=== PATIENT | male | born 2000 | race Caucasian/White ===

== ENCOUNTER 2021-09-15 08:08 | Outpatient (CLI) | payer OTHER, SELFPAY ==
--- NOTE | 2021-09-15 08:15 | CRLHL7_ITS ---
For Patients: As a result of the Century Cures Act, medical imaging exams and procedure reports are released immediately into your electronic medical record. You may view this report before your referring provider. If you have questions, please contact your health care provider. Indication: Right hip pain. Procedure : Informed consent was obtained. The site was marked. Time-out was performed. The skin of the right hip was cleansed with ChloraPrep. A sterile drape was placed. 8 cc of 1 percent lidocaine was administered for superficial anesthesia. Subsequently a 22 gauge spinal needle was introduced into the right hip joint under intermittent fluoroscopic guidance. Injection of 2 cc nonionic Omnipaque 240 contrast confirmed intra-articular location. Subsequently 11 cc of dilute gadolinium were injected. The needle was removed and hemostasis achieved with direct pressure. A dressing was placed. The patient tolerated the procedure well without immediate complication and was immediately sent to MRI for imaging. Total fluoroscopy time 21 seconds. Impression: Successful fluoroscopically guided right hip arthrogram for MRI. Dictated by Brayden Ch MD @ 09/15/2021 9:27:46 AM (Electronically Signed)
--- NOTE | 2021-09-15 09:15 | MR_ITS ---
[facility] [address] [facility] [address] Phone:?[phone] Fax:?[phone] Referring Physician Information: . VLAD Lawson [address] [facility] [address] Phone:?[phone] Fax:?[phone] Patient:?Angel Roca D.O.B:?2000 Sex:?Male Phone:? [facility] MRN:?[id number] Exam Date:?09/15/2021 ? EXAM: MR ARTHROGRAM of the RIGHT HIP CLINICAL HISTORY: Right hip pain. Concern for torn right hip labrum and femoroacetabular impingement. COMPARISONS: None available. TECHNIQUE: MR sequences of the right hip: coronals: PD, T2, T1FS sagittals: PD, T2, T1FS axial obliques: PD axials: PD FS coronals of pelvis: T1, STIR Sedation: None Contrast: Intra-articular gadolinium based contrast. The injection procedure is reported separately. FINDINGS: Pelvis osseous structures: Sacrum: No fracture or destructive osseous lesion is seen of the imaged portions of the sacrum. Sacroiliac joints: No convincing evidence of sacroiliitis of the imaged portions of the sacroiliac joints. Pubic rami: Unremarkable. Symphysis pubis: There is no evidence of acute osteitis pubis. Labrum: There is full-thickness linear tear through the base of the right hip labrum from the 1:30 o'clock position anterosuperiorly through 3 o'clock position anteriorly best seen on axial oblique series 8 images 17 through 13. Hip joint: The presence of contrast reflects intra-articular injection. No discrete chondral loss is seen. No degenerative subchondral cystic change or degenerative subchondral edema-like signal is seen. Proximal femur: No fracture, osseous stress injury, avascular necrosis, or suspicious bone marrow signal abnormality is seen. There is right femoral cam morphology with a femoral alpha angle of approximately 67 degrees at the 12 o'clock position superiorly measured on coronal series 7 image 17. Acetabulum: No subchondral cysts, periacetabular ossicles or marrow edema. Coverage: Right lateral center edge (CE) angle measures approximately 27? correcting for coronal pelvic tilt, midline coronal series 7 image 17. Ligamentum teres: Unremarkable. Myotendinous structures: Gluteus abductors: There is a small approximately 7 x 7 mm partial tear of the anterior portion of the right gluteus medius tendon insertion best seen on axial series 9 image 18 and coronal series 3 image 24. There is mild right greater trochanteric bursitis. Rectus abdominis-adductor longus aponeurosis, adductors, and rectus abdominis: Unremarkable. Hamstrings: Unremarkable. Flexors: The iliopsoas and rectus femoris tendons are intact. Quadratus femoris muscle: Unremarkable. Gluteal aponeurotic fascia and IT band: Unremarkable. Pelvic soft tissues: Unremarkable. IMPRESSION: 1. Full-thickness linear tear through the base of the right hip labrum from the 1:30 o'clock position anterosuperiorly through 3 o'clock position anteriorly. No evidence of right hip chondral loss. No degenerative subchondral cystic change/degenerative subchondral edema-like signal. 2. Right femoral cam morphology with a femoral alpha angle of approximately 67 degrees at the 12 o'clock position superiorly. 3. Small approximately 7 x 7 mm partial tear of the anterior portion of the right gluteus medius tendon insertion and mild right greater trochanteric bursitis, of uncertain clinical significance. 4. No fracture or osseous stress injury of the right hip. RCB Electronically signed on 09/16/2021 8:32:00 AM by Ronnie Lopez M.D.
== END 2021-09-15 08:09 | disposition home or self-care (01) ==
DX: M25.551 Pain in right hip (principal); S73.101A Unspecified sprain of right hip, initial encounter; M70.61 Trochanteric bursitis, right hip
CPT/HCPCS: 27093; 73525; 73722; 77002; A9575; Q9966

== ENCOUNTER 2021-10-14 17:18 | Emergency (ER) | payer OTHER, SELFPAY ==
[2021-10-14 17:22] VITALS: BP 150/85; PULSE 73; RESP 18; TEMP 36.2; O2SAT 63; BMI 30.2
--- NOTE | 2021-10-14 17:44 | CRLHL7_ITS ---
For Patients: As a result of the Cures Act, medical imaging exams and procedure reports are released immediately into your electronic medical record. You may view this report before your referring provider. If you have questions, please contact your health care provider. INDICATION: Pain after injury. COMPARISON: None available. FINDINGS: The left thumb is examined with PA, lateral, and oblique views. There is dorsal dislocation of the 1st MCP joint without evidence of avulsion fracture of the base of the 1st distal phalanx or fracture of the head of the 1st metacarpal. The interphalangeal joint is normal in appearance. The soft tissues are normal in appearance without sign of radio-opaque foreign body. No degenerative disease is seen. IMPRESSION: Dorsal dislocation of the 1st MCP joint without evidence of fracture. Dictated by Kevin Brice MD @ 10/14/2021 6:15:57 PM (Electronically Signed)
--- NOTE | 2021-10-14 17:50 | ED_ITS ---
HPI - General Adult General Time Seen by Provider: 17:50 Date Seen: 10/14/21 Chief complaint: Extremity Pain/Injury, Upper Stated complaint: thumb injury Time Seen by Provider: 10/14/21 17:29 Source: patient Mode of arrival: ambulatory Limitations: no limitations History of Present Illness HPI narrative: Angel is a 20-year-old male no past medical history playing football at [email or web address] today when he fell forward with his left hand jamming his left thumb on the ground. He sustained an injury with some deformity to the left thumb, there is pain and swelling, he has limited range of motion, denies any numbness tingling to the area. No other sustained injury. Related Data Home Medications Medication Instructions Recorded Confirmed No Known Home Medications 10/14/21 10/14/21 Allergies Allergy/AdvReac Type Severity Reaction Status Date / Time No Known Drug Allergies Allergy Verified 10/14/21 17:26 Review of Systems Status of ROS: Reports: 10 or more systems reviewed and unremarkable except as noted in History and below PFSH PFS Social History Smoking Status: Never smoker Do you use any of these nicotine containing products: None Second hand tobacco smoke exposure: No How often do you have a drink containing alcohol: 2-4 times a month How many standard drinks containing alcohol do you have on a typical day: 1 or 2 How often do you have six or more drinks on one occasion: Less than monthly AUDIT-C Alcohol total score: 3 Non-prescribed substance use: denies use service: No Exam Const: Vital Signs, click to edit/add: Vital Signs - 24 hr 10/14/21 17:22 10/14/21 19:30 Temperature 97.2 F L Pulse Rate [Right Pulse Oximeter] 73 54 L Respiratory Rate 18 18 Blood Pressure [Ri ght Upper Arm] 150/85 H 133/89 Pulse Oximetry 63 L 98 Oxygen Delivery Me thod Room Air Room Air Common normals: no apparent distress and oriented x3 HENMT: Common normals: normocephalic, head/scalp atraumatic and TM's normal bilaterally Head and scalp: normocephalic and atraumatic Tympanic membrane: TM's normal bilaterally Eye: Common normals: PERRL Pupil: PERRL Neck & C-Spine: Common normals: full ROM, supple and no JVD Lymph: Lymphatic: no lymphadenopathy noted Resp: Common normals: clear to auscultation bilaterally Auscultation: clear to auscultation bilaterally Cardio: Common normals: no JVD GI: Common normals: Normal to inspection, nondistended, normoactive bowel soun ds present : Common normals: no CVA tenderness Bladder/kidney exam: no CVA tenderness Back & Pelvis: Common normals: no CVA tenderness, thoracic and lumbar spine normal to inspection and no thoracic nor lumbar tenderness Extremity: Other: Left thumb: Significant swelling to the proximal MCP, the proximal phalanx is dorsally dislocated from the MCP, minimal range of motion on extension and fle xion. CMS intact. Neuro: Common normals: oriented x3 and moves all extremities Course Course Hospital Course: 5:45 PM: AIDET performed. Workup will include IV peripheral, suspect dislocation, will obtain imaging XR thumb 3 views. Patient to receive 0.5 mg IV Dilaudid, will also do a digital block. Imaging Dorsal dislocation of the 1st MCP joint without evidence of fracture. Reevaluation(s) Reevaluation #1: Reduction performed, please see procedure note, post reduction films did show successful reduction with no fracture, Postreduction films demonstrate normal alignment of the 1st MCP. No acute fractures. No other dislocations identified. Spoke with Blanca from Orthopedics, recommended thumb spica, he will follow up with them in clinic over the next wee k. Reasons to return were given. All questions answered. Time: 18:48 Vital Signs Vital signs: Initial Vital Signs Temperature 97.2 F L 10/14/21 17:22 Temperature Source Temporal Artery Scan 10/14/21 17:22 Pulse Rate 73 10/14/21 17:22 Respiratory Rate 18 10/14/21 17:22 Blood Pressure 150/85 H 10/14/21 17:22 Blood Pressure Mean 106 10/14/21 17:22 Blood Pressure Position Sitting 10/14/21 17:22 Pulse Oximetry 63 L 10/14/21 17:22 Oxygen Delivery Method 10/14/21 17:22 Vital Signs Temperature 97.2 F L 10/14/21 17:22 Pulse Rate 73 10/14/21 17:22 Respiratory Rate 18 10/14/21 17:22 Blood Pressure 150/85 H 09/01/22 17:22 Pulse Oximetry 63 L 10/14/21 17:22 Oxygen Delivery Method 10/14/21 17:22 Temperature 97.2 F L 10/14/21 17:22 Pulse Rate 54 L 10/14/21 19:30 Respiratory Rate 18 10/14/21 19:30 Blood Pressure 133/89 10/14/21 19:30 Pulse Oximetry 98 10/14/21 19:30 Oxygen Delivery Method 10/14/21 19:30 Discharge Plan Discharge Clinical Impression: Closed dislocation of left thumb Patient Disposition: Home, Self-Care Condition: Improved Instructions: Finger Dislocation (ED) Additional Instructions: To follow-up with orthopedic clinic here in [place] as scheduled over the next week, to continue to wear the thumb spica during activity, Motrin or Tylenol as needed for pain. Return if worsening symptoms. Activity Level: Activity as Tolerated Prescriptions: No Action No Known Home Medications Stand Alone Forms: [facility] Info Instructions Procedures Orthopedic Joint Reduction Joint #1: Written consent by: patient Time Out Performed: Yes Side: left Joint Reduction Location: finger (Left thumb) Manipulation used?: Yes Analgesia: nerve block Local Anesthesia: lidocaine 1% Amount of anesthesic used (mL): 8 Shoulder Technique Used (if applicable): traction/counter-traction Technique used: traction/counter-traction Post-reduction neuro vascular exam: intact Post Reduction X-Ray Obtained: Yes Post Reduction X-Ray Results: reduced Splint Applied: Yes Patient Tolerated Procedure: well
[2021-10-14] MEDS: HYDROmorphone 0.5 mg/0.5 ml inj IVP (18:25)
[2021-10-14 18:33] VITALS: BP 161/88; PULSE 52; O2SAT 97
--- NOTE | 2021-10-14 18:38 | CRLHL7_ITS ---
For Patients: As a result of the Cures Act, medical imaging exams and procedure reports are released immediately into your electronic medical record. You may view this report before your referring provider. If you have questions, please contact your health care provider. Indication: Post reduction. Technique: Three views of the left thumb. Comparison: None. Findings/impression: Postreduction films demonstrate normal alignment of the 1st MCP. No acute fractures. No other dislocations identified. Dictated by Tod Rivera MD @ 10/14/2021 7:49:40 PM (Electronically Signed)
[2021-10-14 19:05] VITALS: PULSE 26; RESP 16; O2SAT 97
[2021-10-14 19:30] VITALS: BP 133/89; PULSE 54; RESP 18; O2SAT 98
--- OUTSIDE RECORDS SUMMARY | 2021-10-14 20:12 | XMS_ITS | Encounter Summary ---
:2000 Author Organization [facility] Address [address] [place] [address] Care Team Providers Name Role Phone No Ref-Primary, Physician Primary Care Provider [phone] Estefany Sullivan MANAGER SOLAR Unavailable Sarah Rodney RN Unavailable Reason for Visit Reason Onset Date Comments Pre Visit Planning - Done 06/15/2020 Consult for te sticular pain. Records available in [employer]. Encounter Details Date Type Department Care Team Description 06/15/2020 PRE VISIT [facility] Geeta Villalta Pre Visit Planning - Urology Clinic MURRAY Plasencia Done (Consult for [address] testicular pain. [address] [place] [address] Records available in 4th Floor [address] [place] [address].) [place], [place] [phone] (Work) [phone] Social History Tobacco Use Types Packs/Day Years Used Date Never Assessed Sex Assigned at Date Recorded Not on file documented as of this encounter Miscellaneous Notes Telephone Encounter - Carolina Pina CMA - 06/15/2020 12:14 PM CDT Consult for testicular pain. Records available in [employer]. documented in this encounter Plan of Treatment Not on filedocumented as of this encounter Visit Diagnoses Not on filedocumented in this encounter Care Teams Boring Machine Operator Helper Relationship Specialty Start Date End Date No Ref-Primary, Physician PCP - General 05/15/20 Estefany Sullivan, JASMINA Nurse Practitioner Urology 05/19/[address] [place] [address] Sarah Rodney, RN Specialty Project Management Instructor Urology 05/19/20 documented as of this encounter
--- OUTSIDE RECORDS SUMMARY | 2021-10-14 20:12 | XMS_ITS | Encounter Summary ---
:2000 Author Organization [facility] Address [address] [place] [address] Care Team Providers Name Role Phone No Ref-Primary, Physician Primary Care Provider [phone] Estefany Sullivan BUSINESS SUPPORT SPECIALIST Unavailable Sarah Rodney RN Unavailable Reason for Visit Reason Onset Date Comments Pre Visit Planning - Done 05/28/2020 Encounter Details Date Type Department Care Team Description 05/28/2020 PRE VISIT [facility] Estefany Sullivan Pre Visi t Planning - Urology Clinic JASMINA Brumfield Done [address] [place], [place] [id number] [place] [address] (Wo rk) [id number] [phone] Social History Tobacco Use Types Packs/Day Years Used Date Never Assessed Sex Assigned at Date Recorded Not on file documented as of this encounter Miscellaneous Notes Telephone Encounter - Roverto Orona EMT - 05/28/2020 7:14 AM CDT Chief Complaint : Consult Hx/Sx: Testicular lesion Records/Orders: Recs obtained Pt Contacted: N/a At Rooming: MOUNA Mosley documented in this encounter Plan of Treatment Not on filedocumented as of this encounter Visit Diagnoses Not on filedocumented in this encounter Care Teams Chief Service Dispatcher Relationship Specialty Start Date End Date No Ref-Primary, Physician PCP - General 05/15/20 Estefany Sullivan, JASMINA Nurse Practitioner Urology 05/19/[address] [place] [address] Sarah Rodney, RN Specialty Maintenance Supervisor Electrical Urology 05/19/20 documented as of this encounter
--- OUTSIDE RECORDS SUMMARY | 2021-10-14 20:12 | XMS_ITS | Clinical Summary ---
:2000 Author Organization [employer] [facility] [place] [address] Care Team Providers Name Role Phone Pcp, No Primary Care Provider Unavailable Allergies No known active allergies Medications Medication Sig Dispensed Refills Start Date End Date Status dextroamphetamine-amphet Take 20 mg by 0 03/02/2021 Active amine (ADDERALL XR) 20 mouth once mg Extended-Release daily. capsule erythromycin ophthalmic Apply 1 Strip to 3.5 g 0 2 Active ointment left eye 6 times 0.5%Indications: daily. Hordeolum externum of left lower eyelid Active Problems Problem Noted Date Leukonychia 05/24/2017 Nutritional deficiency 05/24/2017 Hx of seasonal allergies 05/24/2017 Anxiousness 05/24/2017 Allergy to [place] house dust mite 05/24/2017 Immunizations Name Administration Dates Next Due DTP 06/10/2005, 03/27/2002, 07/18/2000, 02/24/2000, 01/08/2000 HIB PRP-T (ActHIB,Hiberix) 05/14/2001, 07/18/2000, 1, 01/08/2000 Hepatitis B, Unspecified 05/14/2001, 02/24/2000, 01/08/2000 Inactivated Polio Vaccine 06/10/2005, 03/27/2002, 02/24/2000 , 01/08/2000 Influenza, IIV3 (Age >=3 years) 12/10/2020 MMR 06/10/2005, 03/27/2002 Varicella Vaccine 05/18/2007, 10/18/2000 Social History Tobacco Use Types Packs/Day Years Used Date Never Smoker Smokeless Tobacco: Never Used Tobacco Cessation: Counseling Given: Yes Sex Assigned at Date Recorded Not on file Obstetrics History Last Filed Vital Signs Vital Sign Reading Time Taken Comments Blood Pressure 134/80 04/05/2021 11:23 AM DATA MINER Pulse 50 04/05/2021 11:23 AM DATA MINER Temperature 36.9 ??C (98.4 ??F) 12/17/2020 9:59 AM CDT Respiratory Rate - - Oxygen Saturation 99% 04/05/2021 11:23 AM DATA MINER Inhaled Oxygen Concentration - - Weight 105.1 kg (231 lb 9.6 oz) 04/05/2021 11:23 AM DATA MINER Height - - Body Mass Index - - Plan of Treatment Health Maintenance Due Date Last Done Comments HPV series for age 9-26 (1 - 10/15/2010 Male 2-dose series) Tdap 10/15/2010 Depression screening for age 0910/16/2011 12+ BMI (ht and wt on same day) 10/15/2017 for age 18+ Hepatitis C screening for age 0910/15/2017 18-79 Tetanus booster 2019 COVID-19 vaccine series (3 - 11/30/2020 06/30/2020, Booster for Moderna series) 06/02/2020 Influenza for age 9-49 10/14/2021 12/10/2020 Meningococcal series for age Aged Out No longer eligible based 01-03 on patient's age to complete this to pic Results Not on filefrom Last 3 Months Insurance Payer Benefit Plan / Subscriber ID Effective Dates Phone Addre ss Type Group [facility] [id number] 2019-Present [address] [address] [place] [address] Care Teams Insurance Investigator Relationship Specialty Start Date End Date Pcp, No PCP - General 12/07/18 .
--- OUTSIDE RECORDS SUMMARY | 2021-10-14 20:12 | XMS_ITS | Encounter Summary ---
:2000 Author Organization [facility] Address [address] [place] [address] Care Team Providers Name Role Phone No Ref-Primary, Physician Primary Care Provider [phone] Estefany Sullivan [facility] Unavailable Sarah Rodney RN Unavailable Reason for Visit Reason Onset Date Comments *-*INCOMING RECORDS*-* 05/19/2020 Encounter Details Date Type Department Care Team Description 05/19/2020 PRE VISIT [facility] Estefany Sullivan *-*INCOM ING RECORDS*-* Urology Clinic JASMINA Brumfield [id number] [place] [address] (Wo rk) [address] [phone] Social History Tobacco Use Types Packs/Day Years Used Date Never Assessed Sex Assigned at Date Recorded Not on file documented as of this encounter Miscellaneous Notes Telephone Encounter - Paulina Randhawa - 06/09/2020 8:40 AM CDT Action Action Taken Imaging received from [facility] 06/09 taken to [facility] prince process. dipika Telephone Encounter - Paulina Randhawa - 05/19/2020 11:32 AM CDT Action Action Taken Sent request to [facility] in [place] Fax number: [phone] Pt stated he has a testicular us also requested.. cdk MEDICAL RECORDS REQUEST [facility] [address] [place] [address] PHONE: [phone] FUTURE VISIT INFORMATION Angel Roca, : 2000 scheduled for future visit at [facility] APPOINTMENT INFORMATION: ?? Date: 05/29/2020 ?? Provider: Laurie HARRIS ?? Reason for Visit/Diagnosis: Testicular pain REFERRAL INFORMATION: ?? Referring provider: Self ?? Specialty: N/A ?? Referring providers clinic: N/A ?? Clinic contact number: N/A RECORDS REQUESTED FOR VISIT NOTES STATUS/DETAILS OFFICE NOTE from referring provider no OFFICE NOTE from other specialist yes DISCHARGE SUMMARY from hospital no DISCHARGE REPORT from the ER no OPERATIVE REPORT no MEDICATION LIST yes PRE-VISIT CHECKLIST Record collection complete Yes - [facility] recs scanned In [employer] CSS faxed to [facility] to obtain IMGS (US TESTICLE) Appointment appropriately scheduled (right time/right provider) Yes MyChart activation If no, please explain: in process Questionnaire complete If no, please explain: in process Completed by: Shaneka Carter documented in this encounter Plan of Treatment Not on filedocumented as of this encounter Visit Diagnoses Not on filedocumented in this encounter Care Teams Deep Well Contractor Relationship Specialty Start Date End Date No Ref-Primary, Physician PCP - General 05/15/20 Estefany Sullivan CNP Nurse Practitioner Urology 05/19/[address] [place] [id number] Sarah Rodney RN Specialty Jury Consultant Urology 05/19/20 documented as of this encounter
--- OUTSIDE RECORDS SUMMARY | 2021-10-14 20:12 | XMS_ITS | Clinical Summary ---
:2000 Author Organization [facility] [facility] Address [address] [place] [address] Care Team Providers Name Role Phone No Ref-Primary, Physician Primary Care Provider Estefany Sullivan SHOER Unavailable Sarah Rodney RN Unavailable Geeta Villalta PA-C Unavailable Allergies No known active allergies Medications No known medications Immunizations Name Administration Dates Next Due HepB, Unspecified 05/14/2001, 02/24/2000, 01/08/2000 Hib (PRP-T) 05/14/2001, 07/18/2000, 02/24/2000, 12/15 Historical DTP/aP 06/10/2005, 03/27/2002, 07/18/2000, 02/24/2000, 01/08/2000 MMR 06/10/2005, 03/27/2002 Poliovirus, inactivated (IPV) 06/10/2005, 03/27/2002, 2000, 01/08/2000 Varicella 05/18/2007, 10/18/2000 Social History Tobacco Use Types Packs/Day Years Used Date Never Smoker Smokeless Tobacco: Never Used Sex Assigned at Date Recorded Not on file Plan of Treatment Health Maintenance Due Date Last Done Comments ADVANCE CARE PLANNING 2000 ANNUAL REVIEW OF HM ORDERS 2000 PREVENTIVE CARE VISIT 2000 DTAP/TDAP/TD IMMUNIZATION 10/15/2010 06/10/2005, 03/27/2002 , (6 - Tdap) 07/18/2000, Additional history exists HPV IMMUNIZATION (1 - Male 10/15/2010 2-dose series) HIV SCREENING 10/15/2014 HEPATITIS C SCREENING 10/15/2017 COVID-19 Vaccine (2 - 06/30/2020 06/02/2020 Moderna series) PHQ-2 (once per calendar 02/13/2021 06/18/2020 year) INFLUENZA VACCINE (#1) 2021 HEPATITIS B IMMUNIZATION Completed 05/14/2001, 02/24/2000, 01/08/2000 IPV IMMUNIZATION Completed 06/10/2005, 03/27/2002, 02/24/2000, Additional history exists MENINGITIS IMMUNIZATION Aged Out No longe r eligible based on patient 's age to complete this topic Pneumococcal Vaccine: Aged Out No longer eligible Pediatrics (0 to 5 Years) based on patient's age and At-Risk Patients (6 to to co mplete this topic 64 Years) Insurance Payer Benefit Plan / Subscriber ID Effective Phone Address [employer] [facility] [id number] 2020-Bro [phone] [address] [address] Care Teams Last Turner Relationship Specialty Start Date End Date No Ref-Primary, Physician PCP - General 05/15/20 Estefany Sullivan, JASMINA Nurse Practitioner Urology 05/19/[address] [place] [address] [phone] Sarah Rodney, RN Specialty Manager Restaurant Urology 05/19/20 Geeta Villalta PA-C Assigned Surgical Provider 06/28/[address] [place] [address]
--- OUTSIDE RECORDS SUMMARY | 2021-10-14 20:12 | XMS_ITS | Encounter Summary ---
:2000 Author Care Team Providers Name Role Phone Neo Hameed MD Primary Care Provider [phone] Beatrice Esparza MD Medical Records Coder [phone] Reason for Visit Follow up Assessment and Plan 1. Femoral acetabular impingement 20-year-old male with bilateral femoral acetabular impingement. On his left side, he has demonstrated improvement following c ortisone injection. He does still have some discomfort. We discussed that given his MRI findings with a large cam deformity and anterior superior labral tear, it is lik ana that he will need surgical intervention in the future. He would like to play his senior season of football this upcoming fall. Therefore, he will do physical the rapy over the summer and potentially get 1 more cortisone injection in the fall. We discussed potentially doing hip arthroscopy in January. Would like him to follow up with me in the fall to check in on how he is doing. He demonstrated understanding and agreement. ? physical therapist referral - Diagnos is: Bilateral hip ANGÉLICA HIP PHYSICAL THERAPY PRESCRIPTION _X_ Evaluate and treat _X_ Pelvic stabilization exercises _X_ Hip and core strengthening including hip flexors and abductors _X_ Range of motion _X_ WBAT _X_ Gait training _X_ Pain relief modali ties prn Treatment: ____2-3____ times per week _X_ Home Program Duration: ___4-6__ ___ weeks Please send progress notes. Discussion Note: None recorded.Patient educational handouts: No information available. Plan of Care Reminders Provider Appointments None recorded. ? ? Lab None recorded. ? ? Referral Physical Therapist Referral 07/22/2021 Светлана Ordoñez PT Procedures None recorded. ? ? Surgeries None recorded. ? ? Imaging None recorded. ? ? Medications Name Start Date ? ? dextroamphetamine-amphetamine ER 25 mg 24hr capsule,ex tend release ? Take 1 capsule every day by oral route for 30 days. doxycycline hyclate 100 mg capsule ? erythromycin 5 mg/gram (0.5 %) eye ointment ? imiquimod 5 % topical cream packet ? APPLY 1 APPLICATION EVERY OTHER DAY BY TOPICAL ROUTE AT BEDTIME FOR 30 DAYS. Kenalog 40 mg/mL suspension for injection ? Take 2 mL by injection route. lidocaine (PF) 10 mg/mL (1 %) injection solution ? Take 5 mL by injection route. ProAir HFA 90 mcg/actuation aerosol inhaler ? Inhale 2 puffs every 4-6 hours by inhalation route as needed for 30 days. Medications Administered None recorded. Vitals Height 6 ft 1 in Results Lab Results None recorded. Allergies Code Code System Name Reaction Severity Onset No Known Allergies ? ? 2009 NKDA ? ? ? Problems Name Status Onset Date Source ? Varicocele Active 09/11/2020 ? 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 History Procedures Date Name Performed by ? 02/13/2005 Tonsillectomy Information not avai lable 02/13/2003 Myringotomy Tube Placement Information n ot available Notes: repair torn labrum of left dreau lder 07/03/2014 Vaccine List Vaccine Type COVID-19, mRNA, LNP-S, PF, 100 mcg/0.5 m L dose (Moderna) 06/02/2020 06/30/2020 02/02/2021?0.25 mL DTaP 01/08/2000 02/24/2000 07/18/2000 03/27/2002 06/10/2005 Hep B, unspecified formulation 01/08/2000 02/24/2000 05/14/2001 Hib, unspecified formulation 01/08/2000 02/24/2000 07/18/2000 05/14/2001 IPV 01/08/2000 02/24/2000 03/27/2002 06/10/2005 MMR 03/27/2002 06/10/2005 Tdap 09/23/2014?0.5 mL TST-PPD intradermal 10/18/2000 06/10/2005 05/18/2007 varicella 10/18/2000 05/18/2007 Notes: declines 2019 flu vaccine EL Social History Tobacco Smoking Status Never Smoker Notes: history of vaping, stopped vapi ng in June after he had int ense pain after vaping. What type of diet are you REGULAR following? What is your parents' marital status? Are you blind or do you have N difficulty seeing? Do you have smoke and carbon Y monoxide detectors in your home? RISK LEVEL - Segmentation Level 3 - Complex Chronic Dx/specialty treatable Do you have any siblings? 1 Pool exposure Y What was the date of your most 06/24/2021 recent tobacco screening? Do you use sunscreen routinely? Y What is your home situation? Mother Do you or have you ever used Never used electronic e-cigarettes or vape? cigarettes What is your exercise level? Heavy Animal exposure? N Year in School 8 Do you wear a helmet when Y biking? Do you or have you ever used Never used smokeless tobacco smokeless tobacco? Are you deaf or do you have N serious difficulty hearing? Do you use your seat belt or Y car seat routinely? What types of sporting Basketball,Football,Tennis,La activities do you participate Crosse,Golf in? Are you passively exposed to N smoke? What is the name of your [employer]? Family History Relation Problem Onset Age of Age Notes Mother No current problems or (No Information) N/A ( No Notes) disability Father No current problems or (No Information) N/A ( No Notes) disability Functional Status No Impairment. Past Encounters 07/22/2021 Femoral Acetabular Impingement Brayden Chavira MD: [address] [place] [address], [address] [facility], [place] [address], Ph. 06/24/2021 Femoral Acetabular Impingement Marcelo Matos MD: [address] [place] [address], [address] [place] [address], [place] [address], Ph. History of Present Illness Note: 20-year-old male presents for follow-up of left hip pain. About 1 month ago, he underwent a cortisone injection with my partner Dr. Matos within the intra-articular space. He states that this injection did help him significantly. His pain is minimal at this point. He does get occasional tweaks in thehip but it is much less than previously. He was having difficulty doing formal physical therapy the past few months, but he would like to take it back up during the summer. He is also complaining of some right hip pain and states that it is starting to feel similar to the leftReview of Systems: ROS as noted in the HPI Review of Systems None recorded. Physical Exam ? Notes: Left hip- there is no erythe ma or effusion present. The patient is mildly tender to palpation along th e hip flexors, the proximal adductor tendons. Patient demonstrates range o f motion with 100? of flexion, internal rotation to 30?, external rotation 55 ?. There is a mildly positive FADIR, negative RONALD sign. Negative Stinchf ield. Patient has 5/5 strength in hip flexion. Adduction, and abduction. Th ere is no apprehension sign present<div>
</div><div>R ight hip- there is no erythema or effusion present. The patient is nont raffy palpation, including both over the hip flexors and lateral hip. Pat ient demonstrates range of motion with 100? of flexion, internal rotation t o 30?, external rotation 55?. There is a negative FADIR/RONALD sign. Negative S tinchfield. Patient has 5/5 strength in hip flexion, adduction, and abdu ction. There is no apprehension sign present. Intact sensation within the superficial peroneal nerve, deep peroneal nerve, and posterior tibial nerve.< /div>
--- OUTSIDE RECORDS SUMMARY | 2021-10-14 20:12 | XMS_ITS | Encounter Summary ---
:2000 Author Organization [facility] Address [address] [place] [address] Care Team Providers Name Role Phone No Ref-Primary, Physician Primary Care Provider [phone] Estefany Sullivan CNP Unavailable Sarah Rodney RN Unavailable Encounter Details Date Type Department Care Team Description 05/29/2020 Virtual Visit [facility] Estefany Sullivan No-show for Urology Clinic JASMINA Brumfield appointment (Primary [address] Dx) [address] [place] [address] [address]th [address] [address] [place], [place] [phone] [address] (Work) [phone] Social History Tobacco Use Types Packs/Day Years Used Date Never Assessed Sex Assigned at Date Recorded Not on file documented as of this encounter Progress Notes Estefany Sullivan CNP - 05/29/2020 2:30 PM CDT Multiple attempts made to contact patient without response. Will alize as no-show for today's appointment. Estefany Sullivan CNP Department of Urology documented in this encounter Plan of Treatment Not on filedocumented as of this encounter Visit Diagnoses Diagnosis No-show for appointment - Primary documented in this encounter Care Teams Taco Maker Relationship Specialty Start Date End Date No Ref-Primary, Physician PCP - General 05/15/20 Estefany [facility] CNP Nurse Practitioner Urology 05/19/20 [address] [place] [address] Sarah Rodney RN Specialty Shade Classifier Urology 05/19/20 documented as of this encounter
--- OUTSIDE RECORDS SUMMARY | 2021-10-14 20:12 | XMS_ITS | Encounter Summary ---
:2000 Author Organization [facility] Address [address] [place] [address] Care Team Providers Name Role Phone No Ref-Primary, Physician Primary Care Provider [phone] Estefany [facility] CNP Unavailable Sarah Rodney RN Unavailable Encounter Details Date Type Department Care Team Description 06/18/2020 Travel Social History Tobacco Use Types Packs/Day Years Used Date Never Smoker Smokeless Tobacco: Never Used Sex Assigned at Date Recorded Not on file COVID-19 Exposure Response Date Recorded In the last month, have you been in contact with No / Unsure 06/18/2020 11:06 AM CDT someone who was confirmed or suspected to have Coronavirus / COVID-19? documented as of this encounter Plan of Treatment Not on filedocumented as of this encounter Visit Diagnoses Not on filedocumented in this encounter Care Teams Avionics Engineer Relationship Specialty Start Date End Date No Ref-Primary, Physician PCP - General 05/15/20 Estefany [facility] CNP Nurse Practitioner Urology 05/19/20 [address] [place] [address] Sarah Rodney, RN Specialty Commercial Maintenance Technician Urology 05/19/20 documented as of this encounter
--- OUTSIDE RECORDS SUMMARY | 2021-10-14 20:12 | XMS_ITS | Encounter Summary ---
:1999 Author Care Team Providers Name Role Phone Neo Hameed MD Primary Care Provider [phone] Beatrice Esparza MD Transferrer [phone] Reason for Visit None recorded. Assessment and Plan 1. Femoral acetabular impingement 20-year-old male with bilateral femoral acetabular impingement. He is concerned about the progression of his pain over t he past several weeks. He is now questioning whether not he can make it through the season for football. On his right side, would like to get an MRI arthrogram. We do not have any advanced imaging of this joint to assess whether he has labral te aring or chondral damage. On his left side, we agreed to proceed with additional int ra-articular cortisone injection. If this does not provide him sufficient relief, then I recommend he not play in his senior season and move forward with surgery. I do not want him to risk injury secondary to pain and discomfort. He will set up the injection in [place] where he is in college. We will do a virtual check-in s ever weeks after the shot to assess his response and see how football is going Discussion Note: None recorded.Patient educational handouts: No information available. Plan of Care Reminders Provider Appointments None recorded. ? ? Lab None recorded. ? ? Referral None recorded. ? ? Procedures None recorded. ? ? Surgeries None [...] 30 days. Medications Administered None recorded. Vitals None recorded. Results Lab Results None recorded. Allergies Code [...] Myringotomy Tube Placement Information n ot available 08/26/2021 XR, Arthrogram, Hip [facility] [address] [place], [place] [id number] (Work Place) 08/26/2021 US, Hip [facility] [address] [place], [place] [address]2732 (Work Place) 08/26/2021 MR, Arthrogram, Hip Smg Imaging [address] [place], [place] [address]1782 (Work Place) Notes: repair torn labrum of left shou lder 07/03/2014 Vaccine List Vaccine Type COVID-19, [...] smoke? What is the name of your [employer] school? Family History Relation Problem Onset Age of Age Notes Mother No current problems or (No Information) N/A ( No Notes) disability Father No current problems or (No Information) N/A ( No Notes) disability Functional Status No Impairment. Past Encounters 08/26/2021 Femoral Acetabular Impingement Brayden Chavira MD: [address] [facility], [address], [place] [address], Ph. 07/27/2021 Attention Deficit Hyperactivity Disorder , Predominantly Inattentive Type; Long- term Drug Therapy Neo Hameed MD: [address] [place] [address], Ph. History of Present Illness Note: 20-year-old male presents for follow-up of bilateral hip pain. He is here during a virtual visit. He states that the pain has worsened significantly over the past several weeks. In addition to being deep inside his groin he also feels that he is getting some pain in his genitals and the perineal area. He has been doing physical therapy and exercising without much benefit.Review of Systems: ROS as noted in the HPI Review of Systems None recorded. Physical Exam ? Notes: Examination limited secondar y to virtual nature. He self palpates the anterior groin and notes pain in this location. There is also pain in the trochanteric bursa bilaterally
--- OUTSIDE RECORDS SUMMARY | 2021-10-14 20:12 | XMS_ITS | Encounter Summary ---
:1999 Author Organization [facility] Address [address] [place] [address] Care Team Providers Name Role Phone No Ref-Primary, Physician Primary Care Provider [phone] Estefany Sullivan HEAT TREATING FURNACE TENDER Unavailable Sarah Rodney RN Unavailable Encounter Details Date Type Department Care Team Description 06/18/[address] [facility] Dysuria Laboratory [address] [place] [address] Social History Tobacco Use Types Packs/Day Years [...] Not on filedocumented as of this encounter Procedures Procedure Name Priority Date/Time Associated Comments Diagnosis NEISSERIA GONORRHOEAE Routine 06/18/2020 11:09 Dysuria Re sults for this PCR AM CDT procedure are i n the results section. CHLAMYDIA TRACHOMATIS Routine 06/18/2020 11:09 Dysuria Re sults for this PCR AM CDT procedure are i n the results section. documented in this encounter Results Neisseria gonorrhoeae PCR (06/18/2020 11:09 AM CDT) Analysis Performed At Patho logist Time Signature Specimen Urine 06/18/2020 [place] Descrip 11:43 AM CDT [facility] N Gonorrhea Negative NEG^Negati 06/19/2020 INFECTIOUS PCR ve 1:22 PM CDT [facility] Comment: Negative for N. gonorrhoeae rRNA by saenz scription mediated amplification. A negative result by mobile application engineer media nayeli amplification does not preclude the presence of N. gonorrhoeae infection because results are dependent on proper and adequate collection, absence of inhibitors, and sufficient rRNA to be detected. Specimen Anatomical Collection Method Collection Time Receive d Time (Source) Location / / Volume Laterality Urine 06/18/2020 11:09 06/18/2020 AM CDT 11:43 AM CDT Geeta Erinn Villalta PA-C LAB - MICRO GENERAL ORDERABL ES Performing Organization Address City/[facility] Phon e Number INFECTIOUS DISEASES [address] [place] [address] DI[facility]ST[facility]ORY, [facility] [address] [place], [place] [address] [address] Chlamydia trachomatis PCR (06/18/2020 11:09 AM CDT) [facility] Method Time Signature Specimen Urine 06/18/2020 [place] Description 11:43 AM CDT [facility] Chlamydia Negative NEG^Negat 06/19/2020 INFECTIOUS Trachomatis PCR juana 1:22 PM CDT [facility] Comment: Negative for C. trachomatis rRNA by saenz scription mediated amplification. A negative result by mobile application engineer media nayeli amplification does not preclude the presence of C. trachomatis infection because results are dependent on proper and adequate collection, absence of inhibitors, and sufficient rRNA to be detected. Specimen Anatomical Collection Method Collection Time Receive d Time (Source) Location / / Volume Laterality Urine 06/18/2020 11:09 06/18/2020 AM CDT 11:43 AM CDT Geeta Villalta PA-C LAB - MICRO GENERAL ORDERABL ES Performing Organization Address [facility] Phon e Number INFECTIOUS DISEASES [address] [place] [address] DIAGNOSTIC LAB[facility]ATORY, [facility] [address] [place], [place] [address] [address] documented in this encounter Visit Diagnoses Diagnosis Dysuria documented in this encounter Care Teams Bank Courier Relationship Specialty Start Date End Date No Ref-Primary, Physician PCP - General 05/15/20 Estefany [facility] CNP Nurse Practitioner Urology 05/19/20 [address] [place] [address] Sarah Rodney, STEVEN Specialty Software Quality Tester Urology 05/19/20 documented as of this encounter
--- OUTSIDE RECORDS SUMMARY | 2021-10-14 20:12 | XMS_ITS | Encounter Summary ---
:1999 Author Care Team Providers Name Role Phone Neo Hameed MD Primary Care Provider [phone] Beatrice Esparza MD Resident Care Aid [phone] Reason for Visit Medication Check Assessment and Plan Assessment Note 20-year-old male with attenti on deficit hyperactivity disorder, otherwise healthy. Discontinue dextroamphetamine-a mphetamine extended release 20 mg, 1 capsule once daily. Start dextroamphetamine amph etamine extended release 25 mg, 1 capsule once daily. I discussed attention defici t disorder at length. I reviewed the benefits and risks of stimulant medication. I exp lained the potential side effects that may be associated with stimulant medication. Th ronak include, but are not limited to; tachycardia, palpitations, decreased thee etite, sleep disturbance, headaches, and abdominal pain. I reassured the patient that any side effects eventually will improve if the medication is not discontinued. A n attempt will be made to keep the patient on the lowest effective dose of stimulant m edication. However, the medication may have to be titrated upward depending on the r esponse. Feedback is essential. Discussion of attention deficit hyperactivity disorder and stimulant medications took approximately 25 min. 1. Attention deficit hyperactivity diso rder, predominantly inattentive type ? dextroamphetamine-amphetamine ER 25 m g 24hr capsule,extend release 2. Long-term drug therapy Discussion Note This patient was seen and examined by jc sanchez and a provider wearing full PPE. The caregiver was wearing a mask throughout the visit and the patient was wearing a mask for arrival and departure in an age appr opriate fashion. Patient educational handouts: No information available. Plan of [...] days. Medications Administered None recorded. Vitals Height Weight BMI Blood Pressure 6 ft 1 in 231 lbs 30.5 kg/m2 130/60 mm[Hg] Results Lab Results None recorded. Allergies Code [...] available Notes: repair torn labrum of left shou [...] smoke? What is the name of your [employer]? Family History Relation Problem Onset Age of Age Notes Mother No current problems or (No Information) N/A ( No Notes) disability Father No current problems or (No Information) N/A ( No Notes) disability Functional Status No Impairment. Past Encounters 07/27/2021 Attention Deficit Hyperactivity Disorder , Predominantly Inattentive Type; Long- term Drug Therapy Neo Hameed MD: [address] [facility], [place] [address], Ph. 07/22/2021 Femoral Acetabular Impingement Brayden Chavira MD: [address] [facility], [address] [place] [address], Ph. History of Present Illness Note: Angel is a 20-year-old male who has a history of attention deficit hyperactivity disorder.He returns to a consult for a medication check. He presently takes dextroamphetamine-amphetamine extended release 20 mg capsules, 1 capsule once daily. He finds that the 20 mg is not sufficient to keepin focused and organized. He denies any significant side effects. He does not have jitteriness, tachycardia, heart palpitations, headache, or abdominal pain. Review of Systems ? Notes: There are no vision, hearing , dental, cardiac, respiratory, gastrointestinal, renal, hematological, genito urinary, musculoskeletal problems. Physical Exam ? Notes: General: No acute distress. Head: Normocephalic, atraumatic. Eyes: PERRL, EOMI. Clear scleras. Ears: T ympanic membranes are clear. Nose: Negative discharge. Throat: Clear. Ne ck: FROM. Negative lymphadenopathy. Chest: Negative retractions. Lungs: CTA, negative rhonchi, rales, and wheezes. Heart: Negative murmur, RSR, S1, S2 . Abdomen: Normal bowel sounds. Negative HSM. Not distended. Negative masses. Extremities: FROM. Negative cyanosis, clubbing, edema. Skin: Negative rash. Neurologic: PERRLA. EOMI. Negative photophobia. Negative papilledema. Optic discs clearly demarcated. CN II through XII are intact. Deep tendon reflexes are within normal limits. Normal tandem walking. Normal toe walking. Normal h eel walking. Able to hop equally on both feet. Negative Rhomberg test.
--- OUTSIDE RECORDS SUMMARY | 2021-10-14 20:12 | XMS_ITS | Encounter Summary ---
:2000 Author Organization [facility] Address [address] [place] [address] Care Team Providers Name Role Phone No Ref-Primary, Physician Primary Care Provider [phone] Estefany Sullivan HEEL BOOM OPERATOR Unavailable Sarah Rodney RN Unavailable Reason for Visit Reason Comments Consult testicular pain Encounter Details Date Type Department Care Team Description 06/18/[address] [facility] Geeta Villalta Left madonna ticular pain (Primary Dx); [facility] Plasencia Dysuria [address] 4[address] [address] [place], [place] [phone] (Work) [phone] Social History Tobacco Use Types Packs/Day Years Used Date Never Smoker Smokeless Tobacco: Never Used Sex Assigned at Date Recorded Not on file COVID-19 Exposure Response Date Recorded In the last month, have you been in contact with No / Unsure 06/18/2020 11:06 AM CDT someone who was confirmed or suspected to have Coronavirus / COVID-19? documented as of this encounter Patient Instructions Patient InstructionsGeeta Villalta PA-C - 06/18/2020 10:30 AM CDT Images from the original note were not included. UROLOGY CLINIC VISIT PATIENT INSTRUCTIONS Labs today for gonorrhea and chlamydia. Will contact you with results. Start taking Doxycycline 100 mg twice daily for 10 days to treat possible epididymitis. Doxycycline can make you more sensitive to the sun, so use caution and sunscreen when outdoors. Call [phone] if your symptoms do not improve with treatment. We would then consider scheduling an in person visit for exam. Patient Education Epididymitis?? Inflammation of the epididymis can cause pain and swelling in your scrotum. The epididymis is a small tube next to the testicle that stores sperm. Epididymitis is often caused by an infection. In sexually active men, it is often caused by a sexually transmitted infection (STI) such as chlamydia or gonorrhea. In boys and in men over 40, it can be from bacteria from other parts of the urinary tract (not an STI infection). Symptoms may begin with pain in the lower belly (abdomen) or low back. The pain then spreads down into the scrotum. Often only one side is affected. The testicle and scrotum swell and become very painful and red. You may have??fever and a burning when passing urine. Sometimes you may have??a dischargefrom the penis. Treatment is with antibiotics, and anti-inflammatory and pain medicines. The condition should get better over the first few days of treatment. But it will take several weeks for all the swelling and mild pain to go away. If your healthcare provider thinks that an STI is the??cause, your sexual partners may need to be treated. Home care Here are some tips to help you care for yourself at home: ?? Support the scrotum. When lying down, place a rolled towel under the scrotum. When walking, use an athletic supporter or 2 pairs of jockey-style underwear. ?? To ease pain, put ice packs on the inflamed area. To make an??ice pack, put ice cubes in a plastic bag that seals at the top. Wrap the bag in a clean, thin??towel. Never put an ice pack directly on the skin. ?? Take pain medicine as directed. You may use??sdkm-jua-xozbzzd medicines??to control pain, unless another medicine was given. If you have long-term (chronic) liver or kidney disease, talk with your healthcare provider before taking these medicines. Also talk with your provider if you've ever had a stomach ulcer or GI (gastrointestinal) bleeding. ?? Get some rest. Rest in bed for the first few days until the fever, pain, and swelling get better.It may take several weeks for all of the swelling to go away. ?? Prevent constipation. Constipation??can make you strain. This makes the pain worse. Prevent constipation??by eating natural laxatives. These include prunes, fresh fruits, and whole-grain cereals.??If needed, use a mild bqlz-xfy-mmexsdw laxative??for constipation. Mineral oil can be used to keep thestools soft. ?? Wait to have sex. Don't have sex until you have finished all treatment and all symptoms have cleared. ?? Take all medicine as directed. Don't miss any doses. And don't stop taking your medicine early, even if you feel better. Follow-up care Follow up with your healthcare provider, or as advised, to be sure you are responding correctly to treatment. If a culture was taken, you may call for the result as directed. A culture test can ensure that you are on the correct antibiotic.?? When to seek medical advice Call your healthcare provider right away??if any of these occur: ?? Fever of 100.4??F (38??C) or higher, or as directed by your provider ?? More pain or swelling of the testicle after starting treatment ?? Pressure or pain in your bladder that gets worse ?? Unable to pass urine for 8 hours [employer] last reviewed this educational content on 10/14/2018 ?? [id number] [employer]. All rights reserved. This information is not intended as a substitute for professional medical care. Always follow your healthcare professional's instructions. If you have any issues, questions or concerns in the meantime, do not hesitate to contact us at [phone] or via [employer]. It was a pleasure meeting with you today. Thank you for allowing me and my team the privilege of caring for you today. YOU are the reason we are here, and I truly hope we provided you with the excellent service you deserve. Please let us know if there is anything else we can do for you so that we can be sure you are leaving completely satisfied with your care experience. documented in this encounter Progress Notes Geeta Villalta PA-C - 06/18/2020 10:30 AM CDT Angel is a 19 year old who is being evaluated via a billable video visit. How would you like to obtain your AVS? MyChart If the video visit is dropped, the invitation should be resent by: Text to cell phone: [phone] Will anyone else be joining your video visit? No NOTE: Patient's permanent address is [place], though he is currently physically in the [facility] for college. Name: Angel Roca Date of : 2000 Chief Complaint: Testicular pain Assessment and Plan: 19 year old male with left-sided testicular pain x 1 year, now with acutely worsening pain in addition to new symptoms including lower abdominal/pelvic pain (left > right), dysuria, and urinary frequency. Scrotal ultrasound in 09/2019 demonstrated normal testes bilaterally, small epididymal cysts bilaterally, and a left-sided varicocele. Unlikely that the cysts or varicocele alone are the etiology for his worsening symptoms. Clinically, this sounds suspicious for epididymitis, though we are limited by the virtual visit in completing a comprehensive physical exam to make the diagnosis. Discussed empiric treatment with antibiotics, and close follow up in the urology clinic if not improving. He is amenable. Reports low concern for STI, though is amenable to urine testing for gonorrhea and chlamydia. Will do these labs today. Will then treat with Doxycycline 100 mg BID x 10 days. Also encouraged NSAIDS and other supportive measures. Plan: -Lab appointment for gonorrhea and chlamydia urine tests today. -Start Doxycycline 100 mg BID x 10 days. Side effects discussed. -NSAIDS PRN and other supportive measures. -Call if no improvement as would then need further evaluation in person for exam, possible repeat scrotal ultrasound vs CT (need to consider urinary stone, though this seems relatively low on the list of differentials). Of note, he will be returning to his home in [place] on 07/19, returning to [place] for college in the Fall. If symptoms persist, may need to seek care locally. Geeta Villalta PA-C June 18, 2020 History of Present Illness: Angel Roca is a 19 year old male seen today via virtual visit for evaluation of testicular pain. The pain is left-sided and started over a year ago. He describes a constant dull pain with intermittent sharp jabs. He saw someone for this a year ago and was told that he has a swollen sperm duct. Saw them again last fall and was diagnosed and treated for epididymitis with Bactrim with minimal improvement. Scrotal ultrasound at that time revealed small bilateral epididymal head cysts and a left-sidedvaricocele, but was otherwise normal. Since then, his pain has continually worsened. Over the last few weeks, he has also developed lower abdominal/pelvic pain (left > right), pain with urination, urinary frequency, and worsening pain in the left scrotum after ejaculation. The left testicle area feels tender to the touch and is slightly swollen per his report. No identified aggravating of ameliorating factors. He denies gross hematuria, urethral discharge, or changes to his urine stream. He is sexually active and uses condoms. Low concern for STI but he is amenable to testing. Past Medical History: History reviewed. No pertinent past medical history. Past Surgical History: History reviewed. No pertinent surgical history. Social History: Social History Tobacco Use ??? Smoking status: Never Smoker ??? Smokeless tobacco: Never Used Substance Use Topics ??? Alcohol use: Not on file Family History: History reviewed. No pertinent family history. Allergies: No Known Allergies Medications: No current outpatient medications on file. No current facility-administered medications for this visit. Review of Systems: ROS: 14 point ROS neg other than the symptoms noted above in the HPI and PMH. Physical Exam: GENERAL: Healthy, alert and no distress EYES: Eyes grossly normal to inspection. No discharge or erythema, or obvious scleral/conjunctival abnormalities. RESP: No audible wheeze, cough, or visible cyanosis. No visible retractions or increased work of breathing. SKIN: Visible skin clear. No significant rash, abnormal pigmentation or lesions. NEURO: Cranial nerves grossly intact. Mentation and speech appropriate for age. PSYCH: Mentation appears normal, affect normal/bright, judgement and insight intact, normal speech and appearance well-groomed. Labs: None Imagin10/04/2019 Scrotal ultrasound (per radiology report; images not available for review) Normal testes bilaterally without masses. 5 mm cyst in right epididymis 4 mm cyst in left epididymis Left varicocele Outside records: I spent 5 minutes reviewing outside records from [facility]. Video Start Time: 10:36 AM Video-Visit Details Type of service: Video Visit Video End Time:10:50 AM + an additional 5 minutes on the phone when the video connection fell through Originating Location (pt. Location): Home Distant Location (provider location): [facility] [place] Platform used for Video Visit: HarjinderWell documented in this encounter Nursing Notes Preethi Vizcarra LPN - 06/18/2020 10:30 AM CDT Chief Complaint Patient presents with ??? Consult testicular pain No Known Allergies No current outpatient medications on file. Social History Tobacco Use ??? Smoking status: Never Smoker ??? Smokeless tobacco: Never Used Substance Use Topics ??? Alcohol use: None ??? Drug use: None Preethi Vizcarra LPN 06/18/2020 10:31 AM documented in this encounter Plan of Treatment Not on filedocumented as of this encounter Results Chlamydia trachomatis PCR (06/18/2020 11:09 AM CDT) [facility] Method Time Signature Specimen Urine 06/18/2020 [place] Description 11:43 AM CDT [facility] Chlamydia Negative NEG^Negat 06/19/2020 INFECTIOUS Trachomatis PCR juana 1:22 PM CDT [facility] Comment: Negative for C. trachomatis rRNA by saenz scription mediated amplification. A negative result by lay brother media nayeli amplification does not preclude the [...] MICRO GENERAL ORDERABL ES Performing Organization Address City/State/ZIP Code Phon e Number INFECTIOUS DISEASES [address] [place] [address] DI[facility], [facility] [address] [place], [place] [address] [address] Neisseria gonorrhoeae PCR (06/18/2020 11:09 AM CDT) Analysis Performed At Patho logist Time Signature Specimen Urine 06/18/2020 [facility] 11:43 AM CDT [facility] N Gonorrhea Negative NEG^Negati 06/19/2020 INFECTIOUS PCR ve 1:22 PM CDT [facility] Comment: Negative for N. gonorrhoeae rRNA by saenz scription mediated amplification. A negative result by lay brother media nayeli amplification does not preclude the [...] MICRO GENERAL ORDERABL ES Performing Organization Address City/State/ZIP Code Phon e Number INFECTIOUS DISEASES [address] [place] [address] DI[facility]NOSTIC LABORATORY, [facility] [address] [place], [place] [address] [address] documented in this encounter Visit Diagnoses Diagnosis Left testicular pain - Primary Dysuria documented in this encounter Care Teams Accountancy Professor Relationship Specialty Start Date End Date No Ref-Primary, Physician PCP - General 05/15/20 Estefany Sullivan CNP Nurse Practitioner Urology 05/19/[address] [place] [id number] Sarah Rodney, STEVEN Specialty Public Transit Specialist Urology 05/19/20 documented as of this encounter
--- OUTSIDE RECORDS SUMMARY | 2021-10-14 20:12 | XMS_ITS ---
:2000 Author Care Team Providers Name Role Phone NEO ROBERTS MD Primary Care Provider [phone] JIMMIE ZAPIEN MD Coordinator Cardiopulmonary Services [phone] Allergies Code Code System Name Reaction Severity Status Onset No Known Allergies ? ? Active 1 NKDA ? Medications Name Status Start Date Stop Date ? ? amoxicillin 875 mg-potassium clavulanate 125 mg tablet Unknown ? Not available Take 1 tablet twice a day by oral route for 10 days. cefdinir 300 mg capsule Completed ? 08/26/19 17 Colace 100 mg capsule Unknown ? Not availa ble Take 1 tab PO Q8 Hrs while taking narcotic medication dextroamphetamine-amphetamine ER 15 mg 24hr capsule,extend relea se Completed ? 10/09/2020 TAKE 1 CAPSULE EVERY DAY BY ORAL ROUTE FOR 30 DAYS. dextroamphetamine-amphetamine ER 20 mg 24hr Completed ? 07/27/2021 capsule,extend release dextroamphetamine-amphetamine ER 25 mg 24hr capsule,extend relea se Active ? Not available Take 1 capsule every day by oral route for 30 days. doxycycline hyclate 100 mg capsule Active ? Not available erythromycin 5 mg/gram (0.5 %) eye ointment Active ? Not available Flucelvax Quad 60 mcg (15 mcg x 4)/0.5 mL in tramuscular susp Completed ? 08/10/2020 PHARMACY ADMINISTERED imiquimod 5 % topical cream packet Active ? Not available APPLY 1 APPLICATION EVERY OTHER DAY BY TOPICAL ROUTE AT BEDTIME FOR 30 DAYS. Kenalog 40 mg/mL suspension for injection Active ? Not available Take 2 mL by injection route. lidocaine (PF) 10 mg/mL (1 %) injection solution Active ? Not available Take 5 mL by injection route. meloxicam 15 mg tablet Completed ? 2 TAKE 1 TABLET BY MOUTH EVERY DAY IN THE MORNING naproxen 500 mg tablet Completed ? 1 TAKE 1 TABLET BY MOUTH TWICE A DAY FOR 10 DAYS Nasacort 55 mcg nasal spray aerosol Unknown ? Not available Take by nasal route. ondansetron HCl 4 mg tablet Unknown ? Not available oxycodone-acetaminophen 5 mg-325 mg tablet Unknown ? Not available ProAir HFA 90 mcg/actuation aerosol inhaler Active ? Not available Inhale 2 puffs every 4-6 hours by inhalation route as needed fo r 30 days. QNASL 80 mcg/actuation nasal aerosol spray Completed ? 08/17/2017 sulfamethoxazole 800 mg-trimethoprim 160 mg tablet Completed ? 08/10/2020 TAKE 1 TABLET BY MOUTH EVERY 12 HOURS FOR 10 DAYS Vitamin C Unknown ? Not available Problems Name Status Onset Date Source ? Varicocele Active 09/11/2020 ? Attention Deficit Hyperactivity Disorder, Active 2020 ? Predominantly Inattentive Type Allergic Rhinitis Active ? History Shoulder Pain Unknown ? Encounter Injury of Glenoid Labrum of Shoulder Joint Unknown ? Encounter Procedures Date Name Performed by ? 02/13/2005 Tonsillectomy Information not avai lable 02/13/2003 Myringotomy Tube Placement Information n ot available 08/01/2014 X-ray, Shoulder [facility] [place], [place] [address]692 (Work Place) 11/21/2016 XR, Knee, 4 or More View [facility] [place], [place] [address]3082 (Work Place) 11/21/2016 MRI, Lower Extremity Joint(s), W/o Contr ast [facility] [place], [place] [address]452 (Work Place) 05/01/2018 XR, Clavicle [facility] [place], [place] [address]242 (Work Place) 05/01/2018 MRI, Clavicle, W/wo Contrast [facility] [place], [place] [address]602 (Work Place) 05/07/2018 XR, Guidance [facility] [place], [place] [address]682 (Work Place) 08/10/2018 Electrocardiogram [facility] [place], [place] [address]172 (Work Place) 08/10/2018 XR, Chest [facility] [place] [address] (Work Place) 08/13/2019 XR, Knee [facility] [place] [address] (Work Place) 10/04/2019 US, Testicle [facility] [address] [place] [address] (Work Place) 09/07/2020 US, Groin [facility] [place] [address] (Work Place) 02/01/2021 XR, Hip + Pelvis, Bilateral [facility] [place] [address] (Work Place) 02/04/2021 XR, Hip, Unilateral, 1 View [facility] [place] [address] (Work Place) 02/04/2021 XR, Arthrogram, Hip [facility] [place] [address] (Work Place) 02/04/2021 US, Hip [facility] [place] [address] (Work Place) 02/04/2021 MR, Arthrogram, Hip [facility] [place] [address] (Work Place) 08/26/2021 XR, Arthrogram, Hip [facility] [place] [address] (Work Place) 08/26/2021 US, Hip [facility] [place] [address] (Work Place) 08/26/2021 MR, Arthrogram, Hip [facility] [place] [address] (Work Place) Notes: repair torn labrum of left shou lder 07/03/2014 Results Lab Results Date Name Specimen Result Interpretation Description Value Range Status Address ? 09/11/2020 Visual ? R Eye 20/25 ? ? [facility]peds: Acuity* Corrected [address] [place], [address] [place] ? ? ? L Eye -1 ? ? [facility]: Corrected [address] [place], [address] [place] 01/31/2019 CBC W/ Auto BLOO Norm Wbc 6.2 3.8- [facility] Lab: [address], al thousand 10.8 l [facility] WHOL /uL thou E sand /uL ? ? BLOO Norm Rbc [address] [facility] Lab: [address], al million/ -5.8 l [facility] WHOL uL 0 E mill ion/ uL ? ? BLOO Norm Hemoglobin [address] [facility] L ab: [address], al g/dL -17. l [place] WHOL 1 E g/dL ? ? BLOO Norm Hematocrit 43.6 % 38.5 [facility] L ab: [address], al -50. l [place] WHOL 0 % E ? ? BLOO Norm Mcv 92.[address] [facility] Lab: [address], al -100 l [place] WHOL .0 E fL ? ? BLOO Norm Mch 31.[address] [facility] Lab: [address], al -33. l [place] WHOL 0 pg E ? ? BLOO Norm Mchc 34.[address] [facility] Lab: [address], al g/dL -36. l [place] WHOL 0 E g/dL ? ? BLOO Norm Rdw 11.7 % 11.0 [facility] Lab: [address], al -15. l [place] WHOL 0 % E ? ? BLOO Norm Platelet 190 140- [facility] Lab : [address], al Count thousand 400 l [facility] WHOL /uL thou E sand /uL ? ? BLOO Norm Mpv 12.2 fL 7.5- [facility] Lab: [address], D, al 12.5 l [place] WHOL fL E ? ? BLOO Norm Total 62.9 % 40-7 [facility] Lab: 1 [address], Brianna, al Neutrophils, 5 % [place] WHOL % E ? ? BLOO Norm Total 25.0 % 15-5 [facility] Lab: 1 [address], D, al Lymphocytes, 0 % l [place] WHOL % E ? ? BLOO Norm Monocytes,% 9.4 % 0-10 [facility] Lab: [address], D, al % l [place] WHOL E ? ? BLOO Norm Eosinophils 2.1 % 0-6 [facility] Lab: [address] D, al ,% % l [place] WHOL E ? ? BLOO Norm Basophils,% 0.6 % 0-2 [facility] Lab: [address], D, al % l [place] WHOL E ? ? BLOO Norm Neutrophils [address] [facility] Lab: [address], al ,absolute cells/uL -780 [place] WHOL 0 E cell s/uL ? ? BLOO Norm Lymphocytes 1550 850- [facility] Lab: [address], al ,absolute cells/uL 3900 l [place] WHOL cell E s/uL ? ? BLOO Norm Monocytes,a 583 200- [facility] Lab: [address], al bsolute cells/uL 950 l [place] WHOL cell E s/uL ? ? BLOO Norm Eosinophils 130 15-5 [facility] Lab: [address] D, al ,absolute cells/uL 00 l [place] WHOL cell E s/uL ? ? BLOO Norm Basophils,a 37 0-20 [facility] Lab: [address] D, al bsolute cells/uL 0 l [place] WHOL cell E s/uL ? ? BLOO Norm Differentia result ? [facility] Lab: [address], al l below l [place] WHOL E 01/31/2019 TSH, Serum SERU Norm Tsh 0.64 0.50 Mon[facility] Lab: [address], or Plasma M al mIU/L -4.3 l [place] 0 mIU/ L 03/23/2018 Biopsy, TISS ? Results ? ? [facility] Lab: [address], Tissue UE l [place] 08/17/2017 CMP, Serum PLAS Low Glucose, 67 mg/dL 70-9 [facility] Lab: [address], or Plasma [place] Fasting [address] [facility] [place] mg/d L ? ? PLAS ? Bun 20 mg/dL 9-25 [facility] Lab: [address], [place] mg/d l [place] L ? ? PLAS ? Creatinine 0.[address] [facility] L ab: [address], [place] mg/dL -1.1 l [place] 7 mg/d L ? ? PLAS ? Sodium 141 136- [facility] Lab: [address], [place] mmol/L 145 l [place] mmol /L ? ? PLAS ? Potassium 4.4 3.5- [facility] La b: [address], [place] mmol/L 5.1 l [place] mmol /L ? ? PLAS ? Chloride 105 100- [facility] Lab : [address], [place] mmol/L 109 l [place] mmol /L ? ? PLAS ? Carbon [address] [facility] Lab: [address], [place] Dioxide mmol/L -32. l [facility] 0 mmol /L ? ? PLAS ? Anion Gap 8.0 4.0- [facility] La b: [address], [place] 10.0 l [place] ? ? PLAS ? Calcium 9.3 9.0- [facility] Lab: [address], [place] mg/dL 10.7 l [place] mg/d L ? ? PLAS ? Total 8.2 g/dL 6.7- [facility] Lab: [address], [place] Protein 8.4 l [facility] g/dL ? ? PLAS ? Albumin 4.4 g/dL 3.4- [facility] La b: [address], MA 5.0 l [place] g/dL ? ? PLAS ? Total 0.[address] [facility] Lab: [address] [place] Bilirubin mg/dL 0 l [place] mg/d L ? ? PLAS ? Alkaline 107 U/L 98-3 [facility] La b: [address] [place] Phosphatase 17 l [place] U/L ? ? PLAS ? Sgot (Ast) 25 U/L 10-4 [facility] L ab: [address] [place] 1 l [place] U/L ? ? PLAS ? Sgpt (Alt) 27 U/L <78 [facility] L ab: [address] [place] U/L l [place] 08/17/2017 CBC W/ Auto BLOO ? White Blood 7.5 3.8- [facility] Lab: [address], Diff D, Cells 10^3/uL 9.8 l [facility] WHOL 10^3 E /uL ? ? BLOO ? Red Blood 4.[address] [facility] La b: [address], D, Cells 10^6/uL -5.2 l [facility] WHOL 9 E 10^6 /uL ? ? BLOO ? Hemoglobin 14.[address] [facility] L ab: [address] D, g/dL -14. l [place] WHOL 5 E g/dL ? ? BLOO ? Hematocrit 42.8 % 33.9 [facility] L ab: [address] D, -43. l [place] WHOL 5 % E ? ? BLOO ? Platelet 191 175- [facility] Lab : [address] D, Count 10^3/uL 332 l [facility] WHOL 10^3 E /uL ? ? BLOO ? Mcv 89 fL 77-8 [facility] Lab: 1 [address] D, 9 fL l [place] WHOL E ? ? BLOO ? Mch 29.[address] [facility] Lab: [address] D, -30. l [place] WHOL 2 pg E ? ? BLOO ? Mchc 33.[address] [facility] Lab: [address], D, g/dL -34. l [place] WHOL 8 E g/dL ? ? BLOO Low RDW-CV 12.1 % 12.4 [facility] Lab: [address], D, -14. l [place] WHOL 5 % E ? ? BLOO ? Neutro-segs 66.7 % 32.5 [facility] Lab: [address], D, % -74. l [place] WHOL 7 % E ? ? BLOO ? Lymphocytes 23.5 % 16.4 [facility] Lab: [address], D, % -52. l [place] WHOL 7 % E ? ? BLOO ? Monocytes% 6.8 % 4.4- [facility] L ab: [address], D, 12.3 l [place] WHOL % E ? ? BLOO ? Eosinophils 1.9 % 0.0- [facility] Lab: [address], D, % 4.0 l [place] WHOL % E ? ? BLOO High Basophils% 0.8 % 0.0- [facility] L ab: [address], D, 0.7 l [place] WHOL % E ? ? BLOO ? Neutrophil, 4.[address] [facility] Lab: [address], D, Absolute 10^3/uL -7.0 l [place] WHOL 4 E 10^3 /uL ? ? BLOO ? Lymphocytes 1.[address] [facility] Lab: [address] D, , Absolute 10^3/uL -3.2 l [place] WHOL 6 E 10^3 /uL ? ? BLOO ? Monocytes, 0.[address] [facility] L ab: [address] D, Absolute 10^3/uL -0.7 l [place] WHOL 8 E 10^3 /uL ? ? BLOO ? Eosinophils 0.[address] [facility] Lab: [address], , Absolute 10^3/uL -0.3 l [place] WHOL 8 E 10^3 /uL ? ? BLOO High Basophils, 0.[address] [facility] L ab: [address], D, Absolute 10^3/uL -0.0 l [facility] WHOL 5 E 10^3 /uL 08/17/2017 Rf PLAS ? Rheumatoid <10.0 <14. Monique Rosales mg Lab: [address], (Rheumatoid MA Factor IU/mL 0 l [facility] [place] Factor), IU/m Serum L 08/17/2017 TSH, Serum PLAS ? TSH - 1.000 0.50 [facility] Lab: [address], or Plasma MA Reflex to uIU/mL 0-5. [facility] FT4 100 uIU/ mL 08/17/2017 ESR BLOO ? Sed Rate 4 mm/HR 0-10 [facility] Lab: [address], (Erythrocyt D, (ESR) mm/H [facility] e WHO R Sedimentati E on Rate), Blood 08/17/2017 Wilmar-bar SERU Norm Ebv Vca Ab <18.00 ? Oscar [facility] Lab: [address] r Virus M al (IgG) U/mL [facility] (Ebv) Viral Capsid Antigen Igg Ab, Serum 08/17/2017 Lyme SERU ? Lyme IgG II negative neg Monique [facility]: [address], Disease M [facility] Igg+igm, Serum, Reflex Western Blot ? ? SERU ? [facility] 0.00 <0.2 [facility] 1 [address], M Threshold 0 [facility] Value ? ? SERU ? Lyme IgM II negative neg Monique [facility] Lab: [address], M tive [facility] P ark ? ? SERU ? Lyme 0.02 <0.1 [facility] 1 [address], M Threshold 2 [facility] Value 08/17/2017 ARTHUR SERU Norm ARTHUR negative neglatha Amaya [facility]: [address], (Antinuclea M al Screen,ifa tive [facility] r Antibodies) Titer + Pattern, Ifa, Serum 08/17/2017 Wilmar-bar SERU Norm Ebv Vca Ab <36.00 ? Oscar [facility] Lab: [address], r Virus M al (IgM) U/mL [facility] (Ebv) Viral Capsid Antigen Igm Ab, Serum 08/17/2017 Visual ? R Eye 20/20 ? ? [facility]: Acuity* Contact [address] [place], [address] [place] ? ? ? L Eye 20/20-1 ? ? [email or web address]: Contact [address] [place], [place] [place] 03/09/2017 Streptococc THRO ? Final microbio ? [facility] Lab: [address], us Sp, AT Report [facility] P ark Beta-hemoly SWAB results tic, Culture, Throat 12/06/2016 Culture, CULT ? Final microbio ? [facility] Lab: [address], Aerobic, WND Report [facility] Wound results 12/13/2015 Culture, SINU ? Final microbio ? [facility] Lab: [address], Sinus S Report [facility] P [facility] SWAB results 09/25/2012 Vitamin D SERU ? Vitamin D 32.[address] [facility] Lab: [address], 25 M NG/mL -100 l [place] Hydroxy,tot .0 al NG/m L 09/25/2012 Vitamin D, SERU ? Vitamin D 32.[address] [facility] Lab: [address], 25-Hydroxy, M NG/mL -100 l [facility] Total, .0 Serum NG/m L 09/25/2012 Lyme Igg + SERU Norm Lyme negative nega [facility] Lab: [address], Igm Ab, M al Disease tive [facility] (IgG) Blot, Serum ? ? SERU Norm 18 Kd (IgG) nonreact ? [facility] Lab: [address], M al Band juana [facility] P ark ? ? SERU Norm 23 Kd (IgG) nonreact ? [facility] Lab: [address], M al Band juana [facility] P ark ? ? SERU Norm 28 Kd (IgG) nonreact ? [facility] Lab: [address], M al Band juana l [place] ? ? SERU Norm 30 Kd (IgG) nonreact ? [facility] Lab: [address], M al Band juana l [place] ? ? SERU Norm 39 Kd (IgG) nonreact ? [facility] Lab: [address], M al Band juana l [place] ? ? SERU Norm 41 Kd (IgG) nonreact ? [facility] Lab: [address], M al Band juana l [place] ? ? SERU Norm 45 Kd (IgG) nonreact ? [facility] Lab: [address], M al Band juana l [place] ? ? SERU Norm 58 Kd (IgG) nonreact ? [facility] Lab: [address], M al Band juana l [place] ? ? SERU Norm 66 Kd (IgG) nonreact ? [facility] Lab: [address], M al Band juana l [place] ? ? SERU Norm 93 Kd (IgG) nonreact ? [facility] Lab: [address], M al Band juana l [place] ? ? SERU Norm Lyme negative nega [facility] Lab: [address] M al Disease tive [facility] Interp (IgM) ? ? SERU Norm 23 Kd (IgM) nonreact ? [facility] Lab: [address], M al Band juana l [place] ? ? SERU Norm 39 Kd (IgM) nonreact ? [facility] Lab: [address], M al Band juana l [place] ? ? SERU Norm 41 Kd (IgM) nonreact ? [facility] Lab: [address], M al Band juana l [place] 09/25/2012 CBC W/ Auto BLOO ? White Blood 4.6 3.8- Fi na [facility] Lab: [address], Diff D, Cells 10^3/uL 9.8 l [facility] WHOL 10^3 E /uL ? ? BLOO ? Red Blood 5.[address] [facility] La b: [address], D, Cells 10^6/uL -5.2 l [facility] WHOL 9 E 10^6 /uL ? ? BLOO High Hemoglobin 14.8 11.0 [facility] ab: [address], D, g/dL -14. l [place] WHOL 5 E g/dL ? ? BLOO ? Hematocrit 43.4 % 33.9 [facility] L ab: [address], D, -43. l [place] WHOL 5 % E ? ? BLOO ? Platelet 216 175- [facility] Lab : [address] D, Count 10^3/uL 332 l [facility] WHOL 10^3 E /uL ? ? BLOO ? Mcv 85.[address] [facility] Lab: [address], D, -89. [facility] P ark WHOL 2 fL E ? ? BLOO ? Mch 29.[address] [facility] Lab: [address], D, -30. l [place] WHOL 2 pg E ? ? BLOO ? Mchc 34.[address] [facility] Lab: 1 [address], D, g/dL -34. l [place] WHOL 8 E g/dL ? ? BLOO ? Rdw 12.5 % 12.4 [facility] Lab: 1 [address], D, -14. l [place] WHOL 5 % E ? ? BLOO ? Neutro-segs 52.0 % 32.5 [facility] Lab: [address], D, % -74. l [place] WHOL 7 % E ? ? BLOO ? Lymphocytes 37.9 % 16.4 [facility] Lab: [address], D, % -52. l [place] WHOL 7 % E ? ? BLOO ? Monocytes% 8.0 % 4.4- [facility] ab: [address], D, 12.3 l [place] WHOL % E ? ? BLOO ? Eosinophils 1.9 % 0.0- [facility] Lab: [address], D, % 4.0 l [place] WHOL % E ? ? BLOO ? Basophils% 0.2 % 0.0- [facility] L ab: [address], D, 0.7 l [place] WHOL % E 09/25/2012 Lipid PLAS ? Cholesterol [address] [facility] Lab: [address], Panel, [place] mg/dL mg/d l [place] Serum L ? ? PLAS ? Hdlc 55 mg/dL 40-5 [facility] Lab: [address], MA 9 l [place] mg/d L ? ? PLAS ? Triglycerid 53 mg/dL 20-1 [facility] g Lab: [address], MA e 50 l [place] mg/d L ? ? PLAS ? Calculated 95 mg/dL <130 [facility] Lab: [address], [place] LDL mg/d l [place] L ? ? PLAS ? Non-hdl 106.0 ? [facility] Lab: [address], [place] mg/dL l [place] ? ? PLAS ? cholesterol 2.93 ? [facility] Lab: [address], MA /HDL Ratio ratio l [facility] ? ? PLAS ? LDL/HDL 1.73 ? [facility] Lab: [address], MA Ratio ratio l [place] 09/25/2012 CMP, Serum PLAS ? Glucose, 83 mg/dL 70-9 [facility] Lab: [address], or Plasma [place] Fasting 9 l [facility] [place] mg/d L ? ? PLAS ? Bun 14 mg/dL 9-25 [facility] Lab: [address], [place] mg/d l [place] L ? ? PLAS Low Creatinine 0.[address] [facility] L ab: [address], [place] mg/dL -1.1 l [place] 7 mg/d L ? ? PLAS ? Sodium 141 136- [facility] Lab: [address], [place] mmol/L 145 l [place] mmol /L ? ? PLAS ? Potassium 4.1 3.5- [facility] La b: [address], MEAGAN mmol/L 5.1 l [place] mmol /L ? ? PLAS ? Chloride 107 100- [facility] Lab : [address] [place] mmol/L 109 l [place] mmol /L ? ? PLAS ? Carbon [address] [facility] Lab: [address] [place] Dioxide mmol/L -32. l [facility] 0 mmol /L ? ? PLAS ? Anion Gap 7.0 5.0- [facility] La b: [address] MA 15.0 l [place] ? ? PLAS ? Calcium 9.4 8.5- [facility] Lab: [address] [place] mg/dL 10.1 l [place] mg/d L ? ? PLAS ? Total 7.7 g/dL 6.7- [facility] Lab: [address] MA Protein 8.3 l [facility] g/dL ? ? PLAS ? Albumin 4.4 g/dL 3.4- [facility] La b: [address] MA 5.0 l [place] g/dL ? ? PLAS ? Total 0.[address] [facility] Lab: 1 [address] [place] Bilirubin mg/dL -1.2 l [facility] [place] 0 mg/d L ? ? PLAS ? Alkaline 305 U/L 100- [facility] La b: [address] [place] Phosphatase 390 l [facility] [place] U/L ? ? PLAS ? Sgot (Ast) 25 U/L 15-4 Monique [facility] L ab: [address] MA 5 l [place] U/L ? ? PLAS ? Sgpt (Alt) 29 U/L <78 [facility]g L ab: [address] [place] U/L l [place] ? ? PLAS ? Glomerular >60 > 60 Monique [facility] L ab: [address] MA Filtration mL/min/1 mL/m l [facility] Rate-calcula .73m^2 in/1 nayeli .73 M^2 mL/m in/1 .73m ^2 09/25/2012 Lyme Igg + SERU Norm Lyme negative nega [facility] Lab: [address], Igm Ab, M al Disease tive [facility] (IgG) Blot, Serum ? ? SERU Norm 18 Kd (IgG) nonreact ? [facility] Lab: [address], M al Band juana l [place] ? ? SERU Norm 23 Kd (IgG) nonreact ? [facility] Lab: [address], M al Band juana l [place] ? ? SERU Norm 28 Kd (IgG) nonreact ? [facility] Lab: [address], M al Band juana l [place] ? ? SERU Norm 30 Kd (IgG) nonreact ? [facility] Lab: [address], M al Band juana l [place] ? ? SERU Norm 39 Kd (IgG) nonreact ? [facility] Lab: [address], M al Band juana l [place] ? ? SERU Norm 41 Kd (IgG) nonreact ? [facility] Lab: [address], M al Band juana l [place] ? ? SERU Norm 45 Kd (IgG) nonreact ? [facility]: [address], [place] ? ? SERU Norm 58 Kd (IgG) nonreact ? [facility]: [address], [place] ? ? SERU Norm 66 Kd (IgG) nonreact ? [facility]: [address], [place] ? ? SERU Norm 93 Kd (IgG) nonreact ? [facility]: [address], [place] ? ? SERU Norm Lyme negative nega [facility]: [address], M al Disease tive [facility] (IgM) ? ? SERU Norm 23 Kd (IgM) nonreact ? [facility]: [address], [place] ? ? SERU Norm 39 Kd (IgM) nonreact ? [facility] Lab: [address] [place] ? ? SERU Norm 41 Kd (IgM) nonreact ? [facility] Lab: [address] Tabith[address] M [place] 09/25/2012 Cbc BLOO ? White Blood 4.6 3.8- [facility] Lab: [address] Tabith[address] Barajas, D, Cells 10^3/uL 9.8 l [facility] WHOL 10^3 E /uL ? ? BLOO ? Red Blood 5.[address] [facility] La b: 1225 Tabitha Barajas D, Cells 10^6/uL -5.2 l [facility] WHOL 9 E 10^6 /uL ? ? BLOO High Hemoglobin 14.[address] [facility] L ab: 1225 LuLes Barajas D, g/dL -14. [facility] WHOL 5 E g/dL ? ? BLOO ? Hematocrit 43.4 % 33.9 [facility] ab: 1225 Tabitha Barajas D, -43. [facility] WHOL 5 % E ? ? BLOO ? Platelet 216 175- [facility] Lab : 1225 Tabitha Barajas D, Count 10^3/uL 332 l [facility] WHOL 10^3 E /uL ? ? BLOO ? Mcv 85.[address] [facility] Lab: 1225 Tabitha Barajas D, -89. [facility] WHOL 2 fL E ? ? BLOO ? Mch 29.[address] [facility] Lab: 1225 LuLes Barajas, D, -30. l [place] WHOL 2 pg E ? ? BLOO ? Mchc 34.[address] [facility] Lab: 1 225 Lu[address] Nguyễne, D, g/dL -34. l [place] WHOL 8 E g/dL ? ? BLOO ? Rdw 12.5 % 12.4 [facility] Lab: 1 225 LuLes Barajas, D, -14. l [place] WHOL 5 % E ? ? BLOO ? Neutro-segs 52.0 % 32.5 [facility] Lab: 1225 Tabitha Barajas, D, % -74. l [place] WHOL 7 % E ? ? BLOO ? Lymphocytes 37.9 % 16.4 [facility] Lab: 1225 Tabitha Barajas, D, % -52. [place] WHOL 7 % E ? ? BLOO ? Monocytes% 8.0 % 4.4- [facility] L ab: 1225 Tabitha Barajas, D, 12.3 [place] WHOL % E ? ? BLOO ? Eosinophils 1.9 % 0.0- [facility] Lab: 1225 Tabith[address]ajas D, % 4.0 l [place] WHOL % E ? ? BLOO ? Basophils% 0.2 % 0.0- [facility] L ab: 1225 Tabith[address] Barajas, Brianna, 0.7 l [place] WHOL % E 09/25/2012 Lipid Panel PLAS ? Cholesterol 161 <180 [facility] Lab: 1225 Tabitha Barajas [place] mg/dL mg/d l [place] L ? ? PLAS ? Hdlc 55 mg/dL 40-5 [facility] Lab: 1225 Tabitha Barajas [place] 9 l [place] mg/d L ? ? PLAS ? Triglycerid 53 mg/dL 20-1 [facility] Lab: 1225 Tabitha Barajas [place] e 50 l [place] mg/d L ? ? PLAS ? Calculated 95 mg/dL <130 [facility] Lab: 1225 Tabitha Barajas [place] LDL mg/d l [place] L ? ? PLAS ? Non-hdl 106.0 ? [facility] Lab: 1225 Tabitha Barajas [place] mg/dL l [place] ? ? PLAS ? cholesterol 2.93 ? [facility] Lab: 1225 Tabitha Barajas [place] /HDL Ratio ratio l [facility] ? ? PLAS ? LDL/HDL 1.73 ? [facility] Lab: 1225 Tabitha Barajas [place] Ratio ratio l [place] 09/25/2012 Comprehensi PLAS ? Glucose, 83 mg/dL 70-9 [facility] Lab: [address], ve [place] Fasting 9 l [facility] Metabolic mg/d Panel L ? ? PLAS ? Bun 14 mg/dL 9-25 [facility] Lab: [address] Tabith[address] Nguy[address]ne, [place] mg/d l [place] L ? ? PLAS Low Creatinine 0.[address] [facility] L ab: 1225 Tabitha [place]guy[address]ne, [place] mg/dL -1.1 l [place] 7 mg/d L ? ? PLAS ? Sodium 141 136- [facility] Lab: [address], [place] mmol/L 145 l [place] mmol /L ? ? PLAS ? Potassium 4.1 3.5- [facility] La b: [address], [place] mmol/L 5.1 [place] mmol /L ? ? PLAS ? Chloride 107 100- [facility] Lab : [address], [place] mmol/L 109 l [place] mmol /L ? ? PLAS ? Carbon [address] [facility] Lab: 12[address] Lu[address], [place] Dioxide mmol/L -32. l [facility] 0 mmol /L ? ? PLAS ? Anion Gap 7.0 5.0- [facility] La b: [address], [place] 15.0 l [place] ? ? PLAS ? Calcium 9.4 8.5- [facility] Lab: [address], [place] mg/dL 10.1 [place] mg/d L ? ? PLAS ? Total 7.7 g/dL 6.7- [facility] Lab: [address], [place] Protein 8.3 l [facility] g/dL ? ? PLAS ? Albumin 4.4 g/dL 3.4- [facility] La b: [address], [place] 5.0 l [place] g/dL ? ? PLAS ? Total 0.50 0.30 [facility] Sm[facility] Lab: 1 225 Tabith[address]ajas, [place] Bilirubin mg/dL -1.2 [place] 0 mg/d L ? ? PLAS ? Alkaline 305 U/L 100- [facility] La b: 1225 Tabith[address] Barajas, [place] Phosphatase 390 [place] U/L ? ? PLAS ? Sgot (Ast) 25 U/L 15-4 [facility] Smg L ab: 1225 Tabitha Barajas, [place]AGAN 5 l [place] U/L ? ? PLAS ? Sgpt (Alt) 29 U/L <78 [facility] L ab: 1225 Tabitha Barajas, [place] U/L l [place] ? ? PLAS ? Glomerular >60 > 60 [facility] L ab: 1225 Tabitha Barajas, [place]AGAN Filtration mL/min/1 mL/m l [facility] Rate-calcula .73m^2 in/1 nayeli .73 M^2 mL/m in/1 .73m ^2 ? Urinalysis, ? Leukocytes Negative ? ? [facility]_[place]_peds: Dipstick [address] [place], [place] ? ? ? Nitrite negative ? ? [facility] ills_[place]_peds: [address] [place], [place] ? ? ? Urobilinoge 0.2 ? ? [facility]_[place]_peds: n [address] [place], [place] ? ? ? Protein Negative ? ? [facility]: [address] Lower [place], [place] ? ? ? Ph 6.0 ? ? [facility] _[place]_peds: [address] Lower Level, [place] ? ? ? Blood Negative ? ? [facility]: [address] Lower [place], [place] ? ? ? Specific 1.020 ? ? [facility]_[place]_peds: [place] [address] Lower [place], [place] ? ? ? Ketone Negative ? ? [facility]_[place]_peds: [address] Lower Level, [place] ? ? ? Bilirubin Negative ? ? [facility]_[place]_peds: [address] Lower [place], [place] ? ? ? Glucose Negative ? ? [facility] ills_[place]_peds: [address] Lower Level, [place] ? Visual ? R Eye 20/25 ? ? [place] _[place]_peds: Acuity* Corrected [address] Level, [place] ? ? ? L Eye 20/25-1 ? ? [facility] s_[place]_peds: Corrected [address] [place], [place] ? Hearing Norm Left (20 normal ? ? [place]_peds: 592 Screening* al Db) 500 [facility] 1st Floor, [place] ? ? Norm Right (20 normal ? ? [place]_592[place]_peds: 592 al Db) 500 [facility] 1st Floor, [place] ? ? Norm Left (20 normal ? ? [place] _592sfave_peds: 592 al Db) 1000 [facility] 1st Floor, [place] ? ? Norm Right (20 normal ? ? [place]_peds: 592 al Db) [address], [place] ? ? Norm Right (20 normal ? ? [place]_peds: 592 al Db) 2000 [facility] 1st Floor, [place] ? ? Norm Left (20 normal ? ? [place] _592sfave_peds: 592 al Db) 4000 [facility] 1st Floor, [place] ? ? Norm Right (20 normal ? ? [place]_592[place]_peds: 592 al Db) 4000 [facility] 1st Floor, [place] ? Visual ? R Eye 20/50 ? ? [place]_59 2sfave_peds: 592 Acuity* Uncorrected [facility] 1st Floor, [place] ? ? ? L Eye 20/40 ? ? [place]_59 2sfave_peds: [address] [facility] [place]in [address], [place] ? Urinalysis, ? No ? ? ? [place]_peds: Dipstick observation [address] Lower recorded. Level, [place] ? Visual ? R Eye 20/25 ? ? [place] _[place]_peds: Acuity* Uncorrected [address] Lower Level, [place] ? ? ? L Eye 20/30-1 ? ? [place] s[place]wdland_peds: Uncorrected [address] Lower Level, [place] ? Urinalysis, ? Leukocytes Negative ? ? [place]_peds: Dipstick [address] Lower Level, [place] ? ? ? Nitrite negative ? ? [facility] ills_[place]_peds: [address] Lower Level, [place] ? ? ? Urobilinoge .2 ? ? [facility]_[place]_peds: n [address] Lower Level, [place] ? ? ? Protein Negative ? ? [facility]_[place]_peds: [address] Lower Level, [place] ? ? ? Ph 6.0 ? ? [place] _[place]_peds: [address] Lower Level, [place] ? ? ? Blood Negative ? ? [place]_peds: [address] Lower Level, [place] ? ? ? Specific 1.010 ? ? [facility] lls_[place]_peds: [place] [address] Lower Level, [place] ? ? ? Ketone Negative ? ? [facility] lls_[place]_peds: [address] Lower Level, [place] ? ? ? Bilirubin Negative ? ? [facility]_[place]_peds: [address] Lower Level, [place] ? ? ? Glucose Negative ? ? [facility] ills_[place]_peds: [address] Lower Level, [place] ? ? ? Appearance Clear ? ? [place]_peds: [address] Lower Level, [place] ? ? ? Color Yellow ? ? [place] _[place]_peds: [address] Lower Level, [place] ? Visual ? R Eye 20/70 ? ? [place] _[place]_peds: Acuity* Uncorrected [address] Lower Level, [place] ? ? ? L Eye 20/70 ? ? [place] _[place]_peds: Uncorrected [address] Lower Level, [place] Past Encounters 08/26/2021 Femoral Acetabular Impingement Brayden Chavira MD: [address] [facility], [address]n d Floor, [place] [address], Ph. 07/27/2021 Attention Deficit Hyperactivity Disorder , Predominantly Inattentive Type; Long- term Drug Therapy Neo Roberts MD: [address], Lower Level, [place] [address], Ph. 07/22/2021 Femoral Acetabular Impingement Brayden Chavira MD: [address] [facility], [address]n d Floor, [place] [address], Ph. 06/24/2021 Femoral Acetabular Impingement Marcelo Matos MD: [address] [facility], [address], [place] [address], Ph. 04/06/2021 Femoral Acetabular Impingement of Left H ip Joint Brayden Chavira MD: [address] [facility], [address] d Floor, [place] [address], Ph. 02/04/2021 Hip Pain; Pain of Left Hip Joint; Femora l Acetabular Impingement of Left Hip Joint Brayden Chavira MD: [address] [facility], [address] Floor, [place] [address], Ph. 02/01/2021 Hip Pain; Low Back Pain; Strain of Flexo r Muscle of Hip Sunil Harris MD: 1 [facility] 1st [place] [address], Ph. 09/11/2020 Adult Health Examination; Attention Defi cit Hyperactivity Disorder, Predominantly Inattentive Type; Varicocele; Depression Screening Neo Roberts MD: [address] [place] [address], Ph. 09/09/2020 Inguinal Pain; Varicocele Butch Underwood MD: 1 [facility], 3[address] [place] [address], Ph. 09/08/2020 Verruca Vulgaris Yumiko Veras MD: [address] [place] [address], [address] [address], Ph. 09/07/2020 Epididymitis; Pain in Testicle; Cyst of Epididymis; Varicocele; Inguinal Pain Dimitri Cotton MD: [address] [facility], 4th Floor, [place] [address], Ph. 08/10/2020 Attention Deficit Hyperactivity Disorder , Predominantly Inattentive Type Neo Roberts MD: 85 [facility], [facility], [place] [address], Ph. Social History Tobacco Smoking Status Never Smoker Notes: history of vaping, stopped vaping in June after he had int ense pain after vaping. Vaccine List Vaccine Type COVID-19, mRNA, LNP-S, PF, 100 mcg/0.5 m L dose (Moderna) 06/02/2020 06/30/2020 02/02/2021?0.25 mL DTaP 01/08/2000 02/24/2000 07/18/2000 03/27/2002 06/10/2005 Hep B, unspecified formulation 01/08/2000 02/24/2000 05/14/2001 Hib, unspecified formulation 01/08/2000 02/24/2000 07/18/2000 05/14/2001 IPV 01/08/2000 02/24/2000 03/27/2002 06/10/2005 MMR 03/27/2002 06/10/2005 Tdap 09/23/2014?0.5 mL TST-PPD intradermal 10/18/2000 06/10/2005 05/18/2007 varicella 10/18/2000 05/18/2007 Notes: declines 2019 flu vaccine EL Plan of Care Patient Instructions -Continue to eat 3 well balanced meals a day. In addition, strive to take in 3- 4 servings of Dairy a day. If this is not possible then a supplement with Calcium/Vitamin D may be needed. Your goal shoul d be a total daily intake of Calcium of 1300 mg/day. - Incorporate exercise at least 3-4 time s a week for at least 60 minutes. This does not have to be consecutive but may be broken up throughout the day. - Maintain healthy supportive relationsh ips with family and friends. Avoid risk taking behaviors. Use bike helmets consistently, check yourself for ticks every night, use sunscreen and insect repellent. Do not engage in bullying and report bu llying to a trusted adult. Consider involvement in the community/volunteer groups to promote social responsibility and advocacy of others. Strive to continue family activities, as a strong family unit is protective against school dropout, mental health and good quality of life in adolescence. Be careful with online/social media use, which should be closely monitored by parents. Do not sleep with your phone in your bedroom, as this increases use of your phone and decreases the amount and quality of your sleep. Keep private things private, and be careful with postings to social media. Parents: Monitor for signs of social is olation, loss of friends or secretive behaviors, as mental illness is high in adolescence and early intervention is often the paniagua to successful treatment. Please review the adolescent well visit handout under learning materials in the tasks and tools section of the patient portal. Call or portal-message our office with any questions or concerns. We a re more than happy to continue your care until you are 21 years old and/or have completed college. Reminders Provider Appointments None recorded. ? ? Lab None recorded. ? ? Referral None recorded. ? ? Procedures None recorded. ? ? Surgeries None recorded. ? ? Imaging None recorded. ? ? Vitals 07/27/2021 02:40PM Office Visit Height Weight BMI Blood Pressure 6 ft 1 in 231 lbs 30.5 kg/m2 130/60 mm[Hg] 07/22/2021 01:00PM Office Visit Height 6 ft 1 in 06/24/2021 01:45PM New Patient Visit Height 6 ft 1 in 02/04/2021 03:15PM New Patient Visit Height 6 ft 1 in 02/01/2021 10:20AM New Patient Visit Height 6 ft 1 in 09/11/2020 12:20PM Pediatric Physical Height Weight BMI Blood Pressure 6 ft 1 in 208 lbs 9.6 oz 27.5 kg/m2 126/72 mm[Hg] 09/09/2020 09:00AM Office Visit Height Weight BMI Blood Pressure 6 ft 0.75 in 210 lbs 27.9 kg/m2 99/64 mm[Hg] 09/08/2020 03:50PM Office Visit Height 6 ft 0.75 in 09/07/2020 03:30PM Office Visit Height Weight BMI Blood Pressure 6 ft 0.75 in 210 lbs 27.9 kg/m2 120/60 mm[Hg] 08/10/2020 05:00PM Office Visit Height Weight BMI Blood Pressure 6 ft 0.75 in 202 lbs 6.4 oz 26.9 kg/m2 112/72 mm[Hg] 01/08/2020 01:15PM Office Visit Height Weight BMI Blood Pressure 6 ft 1 in 205 lbs 27 kg/m2 120/60 mm[Hg] 10/04/2019 10:30AM New Patient Visit Height Weight BMI Blood Pressure 6 ft 1 in 203 lbs 16 oz 26.9 kg/m2 135/75 mm[Hg] 01/30/2019 02:40PM Consultation Height Weight BMI Blood Pressure 6 ft 1 in 201 lbs 26.5 kg/m2 120/62 mm[Hg] 08/24/2018 10:30AM New Patient Visit Height Weight BMI Blood Pressure 6 ft 1 in 201 lbs 26.5 kg/m2 120/80 mm[Hg] 08/10/2018 01:30PM Office Visit Weight Blood Pressure 199 lbs 16 oz 134/76 mm[Hg] 05/01/2018 10:50AM Office Visit Height 6 ft 1 in 03/23/2018 02:00PM Minor Procedure Height Weight BMI 6 ft 1 in 195 lbs 16 oz 25.9 kg/m2 03/15/2018 02:50PM Consultation Height 6 ft 1 in 03/05/2018 12:15PM Office Visit Height Weight BMI 6 ft 1 in 195 lbs 12.8 oz 25.8 kg/m2 08/17/2017 02:30PM Pediatric Physical Height Weight BMI Blood Pressure 6 ft 1 in 191 lbs 4 oz 25.2 kg/m2 122/68 mm[Hg] 03/09/2017 05:00PM Office Visit Weight 202 lbs 12/06/2016 04:45PM Office Visit Height Weight BMI Blood Pressure 6 ft 1 in 199 lbs 16 oz 26.4 kg/m2 134/43 mm[Hg] 11/21/2016 03:50PM Office Visit Height 6 ft 1 in 08/25/2016 02:00PM Pediatric Physical Height Weight BMI Blood Pressure 6 ft 1 in 201 lbs 6 oz 26.6 kg/m2 122/72 mm[Hg] 01/06/2016 03:00PM Consultation Height Weight BMI Blood Pressure 6 ft 0.5 in 218 lbs 29.2 kg/m2 129/63 mm[Hg] 12/13/2015 02:30PM Office Visit Weight 218 lbs 08/25/2015 06:00PM Pediatric Physical Height Weight BMI Blood Pressure 6 ft 0.5 in 219 lbs 29.3 kg/m2 120/60 mm[Hg] 08/08/2015 04:15PM Office Visit Weight 218 lbs 05/05/2015 07:45PM Office Visit Weight 228 lbs 02/15/2015 12:00PM Office Visit Weight 232 lbs 8 oz 01/19/2015 01:30PM Office Visit Weight 229 lbs 01/05/2015 03:20PM Office Visit Height Weight BMI Blood Pressure 6 ft 224 lbs 30.4 kg/m2 116/68 mm[Hg] 12/08/2014 04:20PM Office Visit Height Weight BMI 6 ft 224 lbs 30.4 kg/m2 10/27/2014 04:40PM Office Visit Height Weight BMI Blood Pressure 6 ft 224 lbs 30.4 kg/m2 116/68 mm[Hg] 09/23/2014 10:20AM Pediatric Physical Height Weight BMI Blood Pressure 6 ft 224 lbs 8 oz 30.4 kg/m2 116/68 mm[Hg] 07/09/2014 03:40PM Post-Op Height Weight BMI Blood Pressure 5 ft 11 in 220 lbs 30.7 kg/m2 118/62 mm[Hg] 04/30/2014 04:45PM Office Visit Weight 220 lbs 12/10/2013 02:30PM Pediatric Physical Height Weight BMI Blood Pressure 5 ft 11.25 in 204 lbs 2 oz 28.3 kg/m2 118/62 mm[Hg] 09/20/2012 Height Weight BMI Blood Pressure 5 ft 9.5 in 182 lbs 8 oz 26.56 kg/m2 128/66 mm[Hg] 08/16/2011 Height Weight BMI 5 ft 4.5 in 151 lbs 25.46 kg/m2 04/27/2010 Weight 133 lbs 02/15/2010 Weight 133 lbs 01/27/2010 Weight 129 lbs
== END 2021-10-14 20:12 | disposition home or self-care (01) ==
LOC: ED 20:09
PROVIDERS: Emergency Provider Student in an Organized Health Care Education/Training Program
DX: S63.105A Unspecified dislocation of left thumb, initial encounter (principal); W18.39XA Other fall on same level, initial encounter; Y93.61 Activity, american tackle football; Y92.321 Football field as the place of occurrence of the external cause; Y99.8 Other external cause status
CPT/HCPCS: 29130; 73140; 96374; 99282; 99283; 99284; J1170